=== PATIENT | female | born 1980 | race Caucasian/White ===

== ENCOUNTER 2018-04-20 22:16 | Emergency (ER) | payer SELFPAY ==
[2018-04-20] MEDS ORDERED: ONDANSETRON 4 MG/2 ML VIAL ONE (23:07)
[2018-04-20 23:47] LABS: Absolute Lymphocytes (CBC) 1.9 K/uL (0.7-4.9); Absolute Monocytes 0.7 K/uL (0.1-1.3); Absolute Neutrophil 3.1 K/uL (1.8-8.0); Basophils % 0.5 % (0-1.3); Eosinophils % 3.2 % (0-4.4); Hematocrit 38.7 % (36.0-45.0); Lymphocytes % 31.5 % (15.3-44.8); MCH 28.2 pg (27.0-35.0); MCV 85.2 fL (80-100); MPV 9.1 fL (7.6-11.3); RBC Red Blood Cell Count 4.55 M/uL (3.86-4.86)
[2018-04-21 00:20] LABS: ALT/SGPT 125 U/L (12-78); AST/SGOT 91 U/L (15-37); Albumin 4.4 g/dL (3.4-5.0); Alkaline Phosphatase 96 U/L (45-117); BUN Blood Urea Nitrogen 11 mg/dL (7-18); Bicarbonate 33 mmol/L (21-32); Bilirubin Direct < 0.1 mg/dL (0-0.2); Bilirubin Total 0.3 mg/dL (0.2-1.0); Magnesium 2.2 mg/dL (1.8-2.4); Potassium 3.4 mmol/L (3.5-5.1); Sodium Level 139 mmol/L (136-145)
[2018-04-21 00:22] LABS: Glucose Level 45 mg/dL (74-106)
[2018-04-21 00:29] LABS: Protime INR 0.89
[2018-04-21] MEDS ORDERED: ONDANSETRON 4 MG/2 ML VIAL ONE (00:56)
[2018-04-21] MEDS ORDERED: POTASSIUM 25 MEQ EFFERV TAB ONE (00:56)
--- NOTE | 2018-04-21 01:12 | EDPHYS ---
Physician Documentation [facility] Name: Roya Torres Age: 38 yrs Sex: Female : 1980 Arrival Date: 04/20/2018 Time: 22:21 Bed 2 Private MD: ED Physician Marlon Jerez HPI: 04/20 22:30 This 38 yrs old Female presents to ER via EMS with complaints of Low Blood cp Sugar. 22:30 The patient or guardian reports hypoglycemia, that was potentially precipitated by no cp particular event. Onset: The symptoms/episode began/occurred today. 22:30 Associated signs and symptoms: Pertinent positives: brief loss of consciousness, cp Pertinent negatives: diarrhea, vomiting. Current symptoms: In the emergency department the patient's symptoms have improved, markedly, is more alert. 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 - Social history:: Smoking status: Patient uses tobacco products, unknown amount. - Ebola Screening: : Patient negative for fever greater than or equal to 101.5 degrees Fahrenheit, and additional compatible Ebola Virus Disease symptoms Patient denies exposure to infectious person Patient denies travel to an Ebola-affected area in the 21 days before illness onset No symptoms or risks identified at this time. ROS: 22:35 Constitutional: Negative for body aches, chills, fever, poor PO intake. cp 22:35 Eyes: Negative for injury, pain, redness, and discharge. cp 22:35 ENT: Negative for drainage from ear(s), ear pain, sore throat, difficulty swallowing, difficulty handling secretions. 22:35 Cardiovascular: Negative for chest pain, edema, palpitations. 22:35 Respiratory: Negative for cough, shortness of breath, wheezing. 22:35 Abdomen/GI: Negative for abdominal pain, nausea, vomiting, and diarrhea, black/tarry stool, rectal bleeding. 22:35 : Negative for urinary symptoms. 22:35 Skin: Negative for cellulitis, rash. 22:35 Neuro: Positive for loss of consciousness, Negative for altered mental status, headache. 22:35 All other systems are negative. Exam: 22:43 Constitutional: The patient appears in no acute distress, alert, awake, cp non-diaphoretic, non-toxic, well developed, well nourished. 22:43 Head/Face: Normocephalic, atraumatic. cp 22:43 Eyes: Periorbital structures: appear normal, Pupils: equal, round, and reactive to light and accomodation, Extraocular movements: intact throughout, Conjunctiva: normal, no exudate, no injection, Sclera: no appreciated abnormality, Lids and lashes: appear normal, bilaterally. 22:43 ENT: External ear(s): are unremarkable, Ear canal(s): are normal, clear, TM's: are normal, no evidence of bulging, no erythema, Nose: is normal, Mouth: Lips: moist, Oral mucosa: moist, Posterior pharynx: is normal, airway is patent, no erythema, no exudate. 22:43 Neck: ROM/movement: is normal, is supple, without pain, no range of motions limitations, no meningismus, no nuchal rigidity. 22:43 Chest/axilla: Inspection: normal, Palpation: is normal, no crepitus, no tenderness. 22:43 Cardiovascular: Rate: normal, Rhythm: regular, Edema: is not appreciated, JVD: is not appreciated. 22:43 Respiratory: the patient does not display signs of respiratory distress, Respirations: normal, no use of accessory muscles, no retractions, no splinting, no tachypnea, labored breathing, is not present, Breath sounds: are clear throughout, no decreased breath sounds, no stridor, no wheezing. 22:43 Abdomen/GI: Inspection: abdomen appears normal, Bowel sounds: active, all quadrants, Palpation: abdomen is soft and non-tender, in all quadrants, involuntary guarding, is not appreciated. 22:43 Back: pain, is absent, ROM is normal. 22:43 Skin: cellulitis, is not appreciated, no rash present. 22:43 Neuro: Orientation: to person, place \T\ time. Cerebellar function: is grossly normal, Motor: moves all fours, strength is normal, Sensation: no obvious gross deficits. 22:59 ECG was reviewed by the Attending Physician. cp Vital Signs: 22:23 BP 135 / 98; Pulse 98; Resp 16; Temp 97.8; Pulse Ox 100% ; Weight 58.06 kg; bp 23:20 BP 140 / 93; Pulse 94; Resp 18; Pulse Ox 100% on R/A; ak1 04/21 00:26 BP 135 / 92; Pulse 113; Resp 18; Pulse Ox 100% ; bp 01:23 BP 143 / 99; Pulse 114; Resp 16; Pulse Ox 99% ; bp Mystic Coma Score: 04/20 22:43 Eye Response: spontaneous(4). Verbal Response: oriented(5). Motor Response: obeys cp commands(6). Total: 15. MDM: 22:24 Patient medically screened. cp 23:00 Differential diagnosis: DKA, hyperglycemia, hypoglycemic episode, dehydration, cardiac cp arrythmia. 04/21 01:05 Data reviewed: vital signs, nurses notes, lab test result(s), EKG, and as a result, I cp will discharge patient. 01:05 Counseling: I had a detailed discussion with the patient and/or guardian regarding: the cp historical points, exam findings, and any diagnostic results supporting the discharge/admit diagnosis, lab results, to return to the emergency department if symptoms worsen or persist or if there are any questions or concerns that arise at home. Response to treatment: the patient's symptoms have resolved after treatment, and as a result, I will discharge patient. 04/20 22:23 Order name: glucometer results - FOR PT WITH NO ID; Complete Time: 23:14 [facility] 04/20 23:14 Interpretation: Abnormal: GLUCATNOID 192. 04/20 22:33 Order name: Basic Metabolic Panel; Complete Time: 00:42 04/21 00:42 Interpretation: Normal except: K 3.4; CO2 33; GLUC 45. 04/20 22:33 Order name: CBC with Diff; Complete Time: 00:07 04/21 00:07 Interpretation: Normal except: MCV 85.2. 04/20 22:33 Order name: LFT's; Complete Time: 00:42 04/21 00:42 Interpretation: Normal except: AST 91; ALT 125; TP 9.0; GLOB 4.6; A/G 1.0. 04/20 22:33 Order name: Magnesium; Complete Time: 00:42 04/20 22:33 Order name: PT-INR; Complete Time: 00:42 cp 04/20 22:33 Order name: Ptt, Activated; Complete Time: 00:42 cp 04/20 22:33 Order name: EKG; Complete Time: 22:34 cp 04/20 22:33 Order name: Diet Ada 2000 Ángel; Complete Time: 22:34 cp 04/21 00:11 Order name: Glucose, Ancillary Testing; Complete Time: 00:23 EDMS 04/20 22:33 Order name: Cardiac monitoring; Complete Time: 23:02 cp 04/20 22:33 Order name: EKG - Nurse/Tech; Complete Time: 23:02 cp 04/20 22:33 Order name: IV Saline Lock; Complete Time: 23:02 cp 04/20 22:33 Order name: Labs collected and sent; Complete Time: 23:02 cp 04/20 22:33 Order name: O2 Per Protocol; Complete Time: 23:02 cp 04/20 22:33 Order name: O2 Sat Monitoring; Complete Time: 23:02 cp 04/20 23:15 Order name: Accucheck Blood Glucose: recheck at 2330; Complete Time: 00:09 cp 04/21 00:55 Order name: Accucheck Blood Glucose; Complete Time: 01:00 cp EC/18 22:59 Rate is 94 beats/min. Rhythm is regular. PA interval is normal. QRS interval is normal. cp QT interval is prolonged at 394 msec. Interpreted by me. Reviewed by me. Administered Medications: 22:50 Drug: Zofran 4 mg Route: IVP; Site: right hand; bp 23:18 Follow up: Response: No adverse reaction; Nausea is decreased bp 04/21 00:57 Drug: Potassium Effervescent Tablet 25 mEq Route: PO; bp 00:59 Follow up: Response: No adverse reaction bp 00:57 Drug: Zofran 4 mg Route: IVP; Site: right hand; bp 01:00 Follow up: Response: Nausea is decreased bp Point of Care Testing: Blood Glucose: 04/20 22:30 Blood Glucose: 192 mg/dL; bp 04/21 00:10 Blood Glucose: 194 mg/dL; bp 01:06 Blood Glucose: 375 mg/dL; bp Ranges: Critical Glucose Levels:Adult <50 mg/dl or >400 mg/dl <40 mg/dl or >180 mg/dl Disposition: 06:23 Co-signature as Attending Physician, Marlon Jerez MD. Disposition: 04/21/18 01:11 Discharged to Home. Impression: Hypoglycemia, unspecified. - Condition is Stable. - Discharge Instructions: Hypoglycemia, Blood Glucose Monitoring, Adult. - Medication Reconciliation Form, Thank You Letter, Antibiotic Education, Prescription Opioid Use form. - Follow up: Private Physician; When: 1 - 2 days; Reason: Recheck today's complaints. - Problem is new. - Symptoms have improved. Signatures: Dispatcher [employer] EDMS Christian Nuñez PA PA cp Marlon Jerez MD MD Ezekiel Mao RN RN bp Corrections: (The following items were deleted from the chart) 01:30 01:11 04/21/2018 01:11 Discharged to Home. Impression: Hypoglycemia, unspecified. bp Condition is Stable. Forms are Medication Reconciliation Form, Thank You Letter, Antibiotic Education, Prescription Opioid Use. Follow up: Private Physician; When: 1 - 2 days; Reason: Recheck today's complaints. Problem is new. Symptoms have improved. cp
--- NOTE | 2018-04-21 01:12 | ER ---
Nurse's Notes [facility] Name: Roya Torres Age: 38 yrs Sex: Female : 1980 Arrival Date: 04/20/2018 Time: 22:21 Bed 2 Private MD: Diagnosis: Hypoglycemia, unspecified Presentation: 04/20 22:21 Presenting complaint: EMS states: HER BLOOD SUGAR WAS 20 ON SCENE. Transition of care: bp patient was not received from another setting of care. Onset of symptoms is unknown. Risk Assessment: Do you want to hurt yourself or someone else? Patient reports no desire to harm self or others. Initial Sepsis Screen: Does the patient meet any 2 criteria? No. Patient's initial sepsis screen is negative. Does the patient have a suspected source of infection? No. Patient's initial sepsis screen is negative. Care prior to arrival: Medication(s) given: D50, 1 amp, IV initiated. 20 GA, in the right hand, Glucose check: 31. 22:21 Method Of Arrival: EMS: [facility] bp 22:21 Acuity: BARBARA 2 bp Triage Assessment: 22:23 General: Appears in no apparent distress. comfortable, Behavior is cooperative, bp appropriate for age, drowsy. Pain: Denies pain. EENT: No deficits noted. Neuro: Level of Consciousness is awake, alert, obeys commands, Oriented to person, place, time, situation, Appropriate for age. Cardiovascular: No deficits noted. Respiratory: Airway is patent Respiratory effort is even, unlabored, Respiratory pattern is regular, symmetrical. GI: No signs and/or symptoms were reported involving the gastrointestinal system. : No signs and/or symptoms were reported regarding the genitourinary system. Derm: No deficits noted. Musculoskeletal: Circulation, motion, and sensation intact. Range of motion: intact in all extremities. 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 - Social history:: Smoking status: Patient uses tobacco products, unknown amount. - Ebola Screening: : Patient negative for fever greater than or equal to 101.5 degrees Fahrenheit, and additional compatible Ebola Virus Disease symptoms Patient denies exposure to infectious person Patient denies travel to an Ebola-affected area in the 21 days before illness onset No symptoms or risks identified at this time. Screenin:29 Abuse screen: Denies threats or abuse. Denies injuries from another. Nutritional bp screening: No deficits noted. Tuberculosis screening: No symptoms or risk factors identified. Fall Risk None identified. Assessment: 22:29 General: SEE TRIAGE NOTE. bp 23:20 Reassessment: pt given sandwich and diet soda. ak1 04/21 00:28 Reassessment: F/U BGL MD Brenda NOTIFIED. NO ACUTE S/S. bp 01:21 Reassessment: PT D/C HOME AMBULATORY WITH FAMILY, DX WITH HYPOGLYCEMIA. bp Vital Signs: 04/20 22:23 BP 135 / 98; Pulse 98; Resp 16; Temp 97.8; Pulse Ox 100% ; Weight 58.06 kg; bp 23:20 BP 140 / 93; Pulse 94; Resp 18; Pulse Ox 100% on R/A; ak1 04/21 00:26 BP 135 / 92; Pulse 113; Resp 18; Pulse Ox 100% ; bp 01:23 BP 143 / 99; Pulse 114; Resp 16; Pulse Ox 99% ; bp Richard Coma Score: 04/20 22:43 Eye Response: spontaneous(4). Verbal Response: oriented(5). Motor Response: obeys cp commands(6). Total: 15. ED Course: 22:21 Patient arrived in ED. bp 22:22 Christian Nuñez PA is PHCP. cp 22:22 Marlon Jerez MD is Attending Physician. cp 22:22 Triage completed. bp 22:29 Arm band placed on. bp 22:29 Patient has correct armband on for positive identification. Bed in low position. Call bp light in reach. Side rails up X2. 22:29 Maintain EMS IV. Dressing intact. Good blood return noted. Site clean \T\ dry. Gauge \T\ bp site: 20 GAUGE R HAND. 23:01 Ezekiel Mao, GARO is Primary Nurse. bp 04/21 00:22 Notified Nurse Practitioner and/or Physician Element Winding Machine Tender of a critical lab result(s), bb Glucose 45 C Page NASREEN notified. 01:22 No provider procedures requiring assistance completed. IV discontinued, intact, bp bleeding controlled, No redness/swelling at site. Pressure dressing applied. Administered Medications: 04/20 22:50 Drug: Zofran 4 mg Route: IVP; Site: right hand; bp 23:18 Follow up: Response: No adverse reaction; Nausea is decreased bp 04/21 00:57 Drug: Potassium Effervescent Tablet 25 mEq Route: PO; bp 00:59 Follow up: Response: No adverse reaction bp 00:57 Drug: Zofran 4 mg Route: IVP; Site: right hand; bp 01:00 Follow up: Response: Nausea is decreased bp Point of Care Testing: Blood Glucose: 04/20 22:30 Blood Glucose: 192 mg/dL; bp 04/21 00:10 Blood Glucose: 194 mg/dL; bp 01:06 Blood Glucose: 375 mg/dL; bp Ranges: Outcome: 01:11 Discharge ordered by MD. cp 01:22 Discharged to home ambulatory, with family. bp 01:22 Condition: stable 01:22 Discharge instructions given to patient, family, Instructed on discharge instructions, follow up and referral plans. Demonstrated understanding of instructions, follow-up care. 01:30 Patient left the ED. bp Signatures: Roshni Yeager, RN RN bb Areli Hubbard RN RN ak1 Christian Nuñez PA PA cp Ezekiel Mao, RN RN bp
[2018-04-21 01:33] VITALS: TEMP 97.8
[2018-04-21 01:37] VITALS: BP 143/99; O2SAT 99
--- NOTE | 2018-04-21 13:53 | EKG ---
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
== END 2018-04-21 01:30 | disposition home or self-care (01) ==
LOC: ER 22:16
DX: E10.649 Type 1 diabetes mellitus with hypoglycemia without coma (principal); Z79.4 Long term (current) use of insulin; Z88.8 Allergy status to other drugs, medicaments and biological substances; F17.210 Nicotine dependence, cigarettes, uncomplicated
CPT/HCPCS: 36415; 80048; 80076; 82962; 83735; 85025; 85610; 85730; 93005; 96374; 99283; J2405